=== PATIENT | male | born 1970 | race Caucasian/White ===

== ENCOUNTER 2019-08-26 12:03 | Emergency (ER) | payer MEDICAID, OTHER ==
[~2019-08-26] VITALS: Ht 177.8 cm; Wt 90.0 kg
[~2019-08-26 12:03] MED LIST: GABA-530 PO; MELO-102 PO
[2019-08-26 12:06] VITALS: BP 146/66
== END 2019-08-26 13:15 | disposition home or self-care (01) ==
LOC: ER 12:03
DX: K40.90 Unilateral inguinal hernia, without obstruction or gangrene, not specified as recurrent (principal); F15.90 Other stimulant use, unspecified, uncomplicated; Z98.890 Other specified postprocedural states; Z79.899 Other long term (current) drug therapy
CPT/HCPCS: 99282

== ENCOUNTER 2021-05-12 03:38 | Inpatient (IN) | payer MEDICAID, OTHER ==
[2021-05-12] VITALS (15 sets, daily range): BP systolic 131–148; BP diastolic 67–114
[~2021-05-12] VITALS: Ht 179.1 cm; Wt 75.0 kg
[2021-05-12] MEDS ORDERED: piperacillin/tazo 4.5gm/100ml 100 ML IV ONE (04:08)
[2021-05-12] MEDS ORDERED: acetaminophen 325mg tablet PO ONE (04:10)
[2021-05-12 04:31] LABS: BASOPHILS % (AUTO) 0.5 % (0-1); EOSINOPHILS # (AUTO) 0.1 X10'3 (0-0.9); EOSINOPHILS % (AUTO) 1.6 % (0-6); HEMATOCRIT 35.4 % (42.0-52.0); HEMOGLOBIN 11.9 g/dl (14.0-17.9); LYMPHOCYTES # (AUTO) 0.7 X10'3 (1.1-4.8); LYMPHOCYTES % (AUTO) 10.8 % (21-51); MEAN CORPUSCULAR HEMOGLOBIN 30.4 PG (27.0-31.0); MEAN CORPUSCULAR HGB CONC 33.5 g/dL (33.0-36.5); MEAN CORPUSCULAR VOLUME 90.6 FL (78-98); MEAN PLATELET VOLUME 7.3 FL (7.4-10.4); MONOCYTES # (AUTO) 0.5 X10'3 (0-0.9); MONOCYTES % (AUTO) 7.8 % (2-12); NEUTROPHILS # (AUTO) 5.1 X10'3 (1.8-7.7); NEUTROPHILS % (AUTO) 79.3 % (42-75); PLATELET COUNT 333 X10'3 (140-440); RED BLOOD COUNT 3.91 X10'6 (4.70-6.10); RED CELL DISTRIBUTION WIDTH 13.8 % (11.5-14.5); WHITE BLOOD COUNT 6.4 X10'3 (4.5-11.0)
[2021-05-12 04:46] LABS: ALANINE AMINOTRANSFERASE 24 U/L (12-78); ALBUMIN 2.6 G/DL (3.4-5.0); ALBUMIN/GLOBULIN RATIO 0.7 (1.1-1.5); ALKALINE PHOSPHATASE 69 IU/L (46-116); ANION GAP 7 (8-16); ASPARTATE AMINO TRANSFERASE 14 U/L (10-37); BILIRUBIN,TOTAL 0.3 MG/DL (0.1-1.0); BLOOD UREA NITROGEN 12 MG/DL (7-18); CALCIUM 8.4 MG/DL (8.5-10.1); CHLORIDE 99 MMOL/L (99-107); CREATININE 0.75 MG/DL (0.60-1.10); GLUCOSE 257 MG/DL (70-104); POTASSIUM 3.5 MMOL/L (3.5-5.1); SODIUM 132 MMOL/L (135-145); TOTAL CARBON DIOXIDE 26.4 MMOL/L (24-32); TOTAL PROTEIN 6.6 G/DL (6.4-8.2); eGFR > 90 ML/MIN
[2021-05-12] MEDS ORDERED: iohexol 300mg/ml 100ml inj. ONE (05:42)
[2021-05-12] MEDS ORDERED: morphine 2 MG/ML inj. syringe IV PRN ×3 (07:30→13:55)
[2021-05-12] MEDS ORDERED: magnesium hydroxide 30ml (MOM) UD suspension PO PRN (07:30)
[2021-05-12] MEDS ORDERED: acetaminophen 325mg tablet PO PRN (07:30)
[2021-05-12] MEDS ORDERED: ondansetron/PF 4mg/2ml inj IV PRN ×2 (07:30→13:55)
[2021-05-12] MEDS ORDERED: potassium Cl 20 mEq SR tablet PO PRN ×2 (07:30)
[2021-05-12] MEDS ORDERED: potassium CL 10mEq/100ml bag 100 ML IV PRN (07:30)
[2021-05-12] MEDS ORDERED: mag hydrox/Alum hydrox/simeth 30ml oral suspension PO PRN (07:30)
[2021-05-12] MEDS ORDERED: magnesium 4gm in 100ml NS 100 ML IV PRN (07:30)
[2021-05-12] MEDS ORDERED: magnesium 2GM in 50ml NS 50 ML IV PRN (07:30)
[2021-05-12] MEDS ORDERED: HYDROcodone/acetaminophen 5mg/325mg tablet PO PRN (07:30)
[2021-05-12 07:56] LABS: MAGNESIUM 1.8 MG/DL (1.5-2.4)
[2021-05-12] MEDS: piperacillin/tazo 4.5gm/100ml 100 ML IV SCH ×2 (08:00→17:41)
--- NOTE | 2021-05-12 10:45 | NUR ---
pt made aware of plan of care for surgery. pt verbalized understanding
[2021-05-12] MEDS: vancomycin/NS 1 GM ADD-VANTAGE 250 ML X 1 DOSE IV SCH ×2 (12:00→21:11)
[2021-05-12] MEDS: docusate sod 100mg capsule PO SCH ×2 (12:21→21:12)
[2021-05-12] MEDS: K and/or MAG REPLACEMENT MC SCH ×2 (12:22→20:00)
[2021-05-12] MEDS ORDERED: vancomycin 1,000mg inj ONE (13:17)
[2021-05-12] MEDS ORDERED: BUPIVAcaine/PF 2.5 mg/ml (0.25%) 30ml vial ONE (13:17)
[2021-05-12] MEDS ORDERED: proCHLORperazine 10 MG/2 ml inj IV PRN (13:55)
[2021-05-12] MEDS ORDERED: meperidine/PF 25mg/ml syringe IV PRN ×2 (13:55)
[2021-05-12] MEDS: ringers solution, lacted 1,000 ML IV SCH ×2 (13:55→22:20)
[2021-05-12] MEDS ORDERED: fentaNYL/PF 50MCG/1 ML 2ML syringe ONE (13:58)
[2021-05-12] MEDS ORDERED: midazolam 1 mg/ML 2ml injection ONE (13:59)
[2021-05-12] MEDS ORDERED: propofol inj 20 ML IV ONE (14:00)
[2021-05-12] MEDS ORDERED: LIDOcaine 2% (20mg/ml) 5ml vial ONE (14:00)
[2021-05-12] MEDS ORDERED: sevoflurane 250ml liquid IH ONE (14:40)
--- NOTE | 2021-05-12 15:45 | NUR ---
PATIENT WAKING UP , C/O PAIN SEE EMAR, V/S WNL, CSM INTACT, DRESSING TO RIGHT ELBOW CDI AND ELEVATED. LEFT HAND IS SWOLLEN MD AWARE.
[2021-05-12] MEDS ORDERED: NO HOME MEDS (15:46)
[2021-05-12] MEDS ORDERED: ketorolac trometh. 30mg/ml inj. IV ONE (15:50)
[2021-05-12] MEDS: meperidine/PF 25mg/ml syringe IV PRN ×2 (15:56→16:11)
[2021-05-12] MEDS: morphine 4 MG/ML inj SYRINge IV PRN ×2 (16:02→16:15)
--- NOTE | 2021-05-12 16:25 | NUR ---
PATIENT A&OX4, STATES PAIN INTERMITENT, V/S WNL, CSM INTACT, DRESSING TO RIGHT ELBOW CDI AND ELEVATED. LEFT HAND IS SWOLLEN MD AWARE. PATIENT TAKEN TO 244B WITH ALL BELONGINGS HOOKED UP TO MONITORS IN ROOM, BED DOWN CALL LIGHT IN REACH REPORT GIVEN TO RN WHO HAS TAKERN OVER PATIENT CARE.
--- NOTE | 2021-05-12 18:08 | NUR ---
Started on IV antibiotics, morphine for pain. Report given to Mercedez Lozano
[2021-05-12] MEDS: enoxaparin 40mg/0.4ml syringe SQ SCH (21:12)
[2021-05-12] MEDS: lactobacillus rhamnosus 10,000 MMU CELLS/CAPSULE PO SCH (21:12)
[2021-05-12] MEDS: HYDROcodone/acetaminophen 10/325mg tab PO PRN (22:30)
[2021-05-13] MEDS ORDERED: VANCOMYCIN LEVEL IV ONE ×2 (03:30→19:30)
[2021-05-13] MEDS: vancomycin/NS 1 GM ADD-VANTAGE 250 ML X 1 DOSE IV SCH ×3 (04:16→20:23)
[2021-05-13 04:41] LABS: BASOPHILS % (AUTO) 0.8 % (0-1); EOSINOPHILS # (AUTO) 0.1 X10'3 (0-0.9); EOSINOPHILS % (AUTO) 1.5 % (0-6); HEMATOCRIT 36.6 % (42.0-52.0); HEMOGLOBIN 12.5 g/dl (14.0-17.9); LYMPHOCYTES # (AUTO) 0.8 X10'3 (1.1-4.8); LYMPHOCYTES % (AUTO) 12.7 % (21-51); MEAN CORPUSCULAR HEMOGLOBIN 30.9 PG (27.0-31.0); MEAN CORPUSCULAR HGB CONC 34.1 g/dL (33.0-36.5); MEAN CORPUSCULAR VOLUME 90.7 FL (78-98); MEAN PLATELET VOLUME 8.2 FL (7.4-10.4); MONOCYTES # (AUTO) 0.7 X10'3 (0-0.9); MONOCYTES % (AUTO) 11.5 % (2-12); NEUTROPHILS # (AUTO) 4.6 X10'3 (1.8-7.7); NEUTROPHILS % (AUTO) 73.5 % (42-75); PLATELET COUNT 307 X10'3 (140-440); RED BLOOD COUNT 4.04 X10'6 (4.70-6.10); RED CELL DISTRIBUTION WIDTH 14.3 % (11.5-14.5); WHITE BLOOD COUNT 6.2 X10'3 (4.5-11.0)
[2021-05-13 04:53] LABS: ALANINE AMINOTRANSFERASE 23 U/L (12-78); ALBUMIN 2.6 G/DL (3.4-5.0); ALBUMIN/GLOBULIN RATIO 0.6 (1.1-1.5); ALKALINE PHOSPHATASE 75 IU/L (46-116); ANION GAP 7 (8-16); ASPARTATE AMINO TRANSFERASE 19 U/L (10-37); BILIRUBIN,TOTAL 0.7 MG/DL (0.1-1.0); BLOOD UREA NITROGEN 12 MG/DL (7-18); BUN/CREATININE RATIO 17.4 (5.4-32.0); CALCIUM 8.9 MG/DL (8.5-10.1); CHLORIDE 103 MMOL/L (99-107); CREATININE 0.69 MG/DL (0.60-1.10); GLUCOSE 110 MG/DL (70-104); MAGNESIUM 1.9 MG/DL (1.5-2.4); POTASSIUM 4.3 MMOL/L (3.5-5.1); SODIUM 136 MMOL/L (135-145); TOTAL CARBON DIOXIDE 26.5 MMOL/L (24-32); TOTAL PROTEIN 6.8 G/DL (6.4-8.2); eGFR > 90 ML/MIN
[2021-05-13] MEDS: HYDROcodone/acetaminophen 10/325mg tab PO PRN ×4 (05:56→23:02)
--- NOTE | 2021-05-13 06:09 | NUR ---
Stable throughout the shift. Medicated twice for pain. Vancomycin infused, labs drawn, voiding in the urinal
--- NOTE | 2021-05-13 06:39 | NUR ---
Change of shift report given to Joann RN Addendum: 05/13/21 at 0639 by Mercedez Meza RN Amended: Links added.
[2021-05-13] MEDS: K and/or MAG REPLACEMENT MC SCH ×2 (08:00→20:42)
[2021-05-13] MEDS: lactobacillus rhamnosus 10,000 MMU CELLS/CAPSULE PO SCH ×2 (09:54→20:23)
[2021-05-13] MEDS: docusate sod 100mg capsule PO SCH ×2 (09:54→20:23)
[2021-05-13] MEDS: piperacillin/tazo 4.5gm/100ml 100 ML IV SCH ×3 (09:57→16:22)
[2021-05-13] MEDS: enoxaparin 40mg/0.4ml syringe SQ SCH (20:25)
[2021-05-14] MEDS: piperacillin/tazo 4.5gm/100ml 100 ML IV SCH ×3 (00:07→19:32)
[2021-05-14] MEDS: vancomycin/NS 1 GM ADD-VANTAGE 250 ML X 1 DOSE IV SCH (04:09)
--- NOTE | 2021-05-14 05:00 | NUR ---
Stable throughout the shift. Medicated for pain. Drinking large amounts fluids and voiding adequately
[2021-05-14] MEDS: HYDROcodone/acetaminophen 10/325mg tab PO PRN ×3 (05:56→19:29)
[2021-05-14 06:05] LABS: BASOPHILS % (AUTO) 0.7 % (0-1); EOSINOPHILS # (AUTO) 0.1 X10'3 (0-0.9); EOSINOPHILS % (AUTO) 1.4 % (0-6); HEMATOCRIT 38.2 % (42.0-52.0); HEMOGLOBIN 13.1 g/dl (14.0-17.9); LYMPHOCYTES # (AUTO) 1.1 X10'3 (1.1-4.8); LYMPHOCYTES % (AUTO) 16.7 % (21-51); MEAN CORPUSCULAR HGB CONC 34.3 g/dL (33.0-36.5); MEAN CORPUSCULAR VOLUME 90.3 FL (78-98); MEAN PLATELET VOLUME 7.3 FL (7.4-10.4); MONOCYTES # (AUTO) 0.8 X10'3 (0-0.9); MONOCYTES % (AUTO) 12.3 % (2-12); NEUTROPHILS # (AUTO) 4.5 X10'3 (1.8-7.7); NEUTROPHILS % (AUTO) 68.9 % (42-75); PLATELET COUNT 402 X10'3 (140-440); RED BLOOD COUNT 4.23 X10'6 (4.70-6.10); RED CELL DISTRIBUTION WIDTH 13.8 % (11.5-14.5); WHITE BLOOD COUNT 6.6 X10'3 (4.5-11.0)
[2021-05-14 06:25] LABS: ALANINE AMINOTRANSFERASE 30 U/L (12-78); ALBUMIN 2.5 G/DL (3.4-5.0); ALBUMIN/GLOBULIN RATIO 0.5 (1.1-1.5); ALKALINE PHOSPHATASE 79 IU/L (46-116); ANION GAP 7 (8-16); ASPARTATE AMINO TRANSFERASE 23 U/L (10-37); BILIRUBIN,TOTAL 0.4 MG/DL (0.1-1.0); BLOOD UREA NITROGEN 14 MG/DL (7-18); BUN/CREATININE RATIO 18.7 (5.4-32.0); CALCIUM 9.1 MG/DL (8.5-10.1); CHLORIDE 104 MMOL/L (99-107); CREATININE 0.75 MG/DL (0.60-1.10); GLUCOSE 107 MG/DL (70-104); MAGNESIUM 2.1 MG/DL (1.5-2.4); POTASSIUM 4.3 MMOL/L (3.5-5.1); SODIUM 139 MMOL/L (135-145); TOTAL CARBON DIOXIDE 28.3 MMOL/L (24-32); TOTAL PROTEIN 7.3 G/DL (6.4-8.2); eGFR > 90 ML/MIN
--- NOTE | 2021-05-14 06:46 | NUR ---
Change of shift report given to Lucrecia MIRANDA Addendum: 05/14/21 at 0646 by Mercedez Meza RN Amended: Links added. Addendum: 05/14/21 at 0707 by Mercedez Meza RN Change of shift report was given to Joann MIRANDA
[2021-05-14] MEDS: K and/or MAG REPLACEMENT MC SCH ×2 (07:22→19:46)
[2021-05-14] MEDS: docusate sod 100mg capsule PO SCH ×2 (08:00→19:29)
[2021-05-14] MEDS: lactobacillus rhamnosus 10,000 MMU CELLS/CAPSULE PO SCH ×2 (08:00→19:29)
[2021-05-14] MEDS: VANCOmycin 1250MG/NS 250ml Bag 250 ML IV SCH ×2 (13:05→22:00)
[2021-05-14 19:00] VITALS: BP 118/62
[2021-05-14] MEDS: enoxaparin 40mg/0.4ml syringe SQ SCH (19:29)
[2021-05-15] VITALS: BP 112/62
[2021-05-15] MEDS: piperacillin/tazo 4.5gm/100ml 100 ML IV SCH ×2 (00:18→07:07)
[2021-05-15] MEDS: HYDROcodone/acetaminophen 10/325mg tab PO PRN ×3 (01:48→11:09)
[2021-05-15] MEDS: VANCOmycin 1250MG/NS 250ml Bag 250 ML IV SCH (04:16)
--- NOTE | 2021-05-15 06:58 | NUR ---
Change of shift report given to Lucrecia MIRANDA Addendum: 05/15/21 at 0658 by Mercedez Meza RN Amended: Links added. Addendum: 05/15/21 at 0705 by Mercedez Meza RN Change of shift report was given to Sarai MIRANDA (not Darcy)
[2021-05-15] MEDS: docusate sod 100mg capsule PO SCH (07:06)
[2021-05-15] MEDS: lactobacillus rhamnosus 10,000 MMU CELLS/CAPSULE PO SCH (07:06)
[2021-05-15] MEDS: K and/or MAG REPLACEMENT MC SCH (07:10)
[2021-05-15 08:00] VITALS: BP 129/79
[2021-05-15 08:16] LABS: ALANINE AMINOTRANSFERASE 36 U/L (12-78); ALBUMIN 2.4 G/DL (3.4-5.0); ALBUMIN/GLOBULIN RATIO 0.5 (1.1-1.5); ALKALINE PHOSPHATASE 75 IU/L (46-116); ANION GAP 9 (8-16); ASPARTATE AMINO TRANSFERASE 20 U/L (10-37); BILIRUBIN,TOTAL 0.2 MG/DL (0.1-1.0); BLOOD UREA NITROGEN 17 MG/DL (7-18); BUN/CREATININE RATIO 21.5 (5.4-32.0); CHLORIDE 105 MMOL/L (99-107); CREATININE 0.79 MG/DL (0.60-1.10); GLUCOSE 104 MG/DL (70-104); MAGNESIUM 2.3 MG/DL (1.5-2.4); POTASSIUM 4.5 MMOL/L (3.5-5.1); SODIUM 140 MMOL/L (135-145); TOTAL CARBON DIOXIDE 26.4 MMOL/L (24-32); TOTAL PROTEIN 7.2 G/DL (6.4-8.2); eGFR > 90 ML/MIN
[2021-05-15] MEDS ORDERED: AMOX-580 PO (09:56)
--- NOTE | 2021-05-15 11:20 | NUR ---
Patient dc'd home with friend driving. Pt was given norco prior to discharge for pain but tolerated it well. Packing dc'd per DR Sibley orders with orders not to repack but with instructions for daily dry dressing orders and follow up with in 1-2 weeks. Pt also given phone number for outpt [facility] and instructed to call both for appointment. IV taken out, new dressing applied. Pt forgot dressing supplies in room but knows he can go to pharmacy for simple dressing supplies while waiting for wound care. Pt states understanding. Abx at [facility] on [address].
[2021-05-15] MEDS ORDERED: VANCOMYCIN LEVEL IV ONE (11:30)
== END 2021-05-15 11:29 | disposition home or self-care (01) | DRG 315 ==
LOC: ER 03:39 → ED HOLD 07:34 → SUR 3N 16:23
PROVIDERS: ADMIT Family Medicine; ATTEND Family Medicine
PROC: 0JBG0ZZ Excision of Right Lower Arm Subcutaneous Tissue and Fascia, Open Approach (ICD-10-PCS; 2021-05-12)
PROC: BP2T1ZZ Computerized Tomography (CT Scan) of Right Upper Extremity using Low Osmolar Contrast (ICD-10-PCS; 2021-05-12)
PROC: 0R9L0ZZ Drainage of Right Elbow Joint, Open Approach (ICD-10-PCS; principal; 2021-05-12 14:40)
DX: M00.9 Pyogenic arthritis, unspecified (principal); E87.1 Hypo-osmolality and hyponatremia; Z20.822 Contact with and (suspected) exposure to COVID-19; F15.10 Other stimulant abuse, uncomplicated; F17.210 Nicotine dependence, cigarettes, uncomplicated; L02.413 Cutaneous abscess of right upper limb; L03.113 Cellulitis of right upper limb; Z71.6 Tobacco abuse counseling
CPT/HCPCS: 36415; 73201; 80053; 80202; 83605; 83735; 84145; 85025; 87040; 87070; 87075; 87635; 96374; 99285; A4618; A6222; A6253; A6446; A6449; A7000; G0378; J1650; J1885; J2175; J2250; J2270; J2543; J2704; J3010; J3370; J3490; J7120; Q9967

== ENCOUNTER 2021-12-13 17:29 | Emergency (ER) | payer MEDICAID ==
[~2021-12-13] VITALS: Ht 177.8 cm; Wt 68.2 kg
[~2021-12-13 17:29] MED LIST changes: +AMOX-580 PO; -GABA-530 PO; -MELO-102 PO
[2021-12-13 17:36] VITALS: BP 128/92
[2021-12-13] MEDS ORDERED: SULF1TAB45 PO (18:23)
[2021-12-13] MEDS ORDERED: CEPH250T PO (18:23)
[2021-12-13] MEDS ORDERED: LIDOcaine 1% W/epiNEPHrine 1:100,000 20ml vial IJ ONE (18:25)
[2021-12-13] MEDS ORDERED: cephalexin 500mg capsule PO ONE (18:25)
[2021-12-13] MEDS ORDERED: sulfamethoxazole/trimethoprim DS (800/160mg) tablet PO ONE (18:25)
== END 2021-12-13 19:00 | disposition home or self-care (01) ==
LOC: ER 17:29
DX: L02.511 Cutaneous abscess of right hand (principal); F15.20 Other stimulant dependence, uncomplicated
CPT/HCPCS: 26010; 99283; A6449

== ENCOUNTER 2024-03-14 08:45 | Outpatient (CLI) | payer MEDICAID | END 2024-03-14 23:59 | disposition home or self-care (01) | LOC: MRI 08:45 | PROVIDERS: ATTEND Podiatrist Foot & Ankle Surgery | DX: M19.071 Primary osteoarthritis, right ankle and foot (principal); M25.871 Other specified joint disorders, right ankle and foot; M25.774 Osteophyte, right foot; Q66.71 Congenital pes cavus, right foot; M25.371 Other instability, right ankle; M79.671 Pain in right foot | CPT/HCPCS: 73700; 73721 ==

== ENCOUNTER 2024-06-24 08:06 | Day surgery (SDC) | payer MEDICAID ==
[2024-06-18 13:45] LABS: BASOPHILS % (AUTO) 0.5 % (0-1); EOSINOPHILS # (AUTO) 0.2 X10'3 (0-0.9); EOSINOPHILS % (AUTO) 2.4 % (0-6); LYMPHOCYTES # (AUTO) 1.5 X10'3 (1.1-4.8); LYMPHOCYTES % (AUTO) 16.7 % (21-51); MEAN CORPUSCULAR HEMOGLOBIN 28.6 PG (27.0-31.0); MEAN CORPUSCULAR VOLUME 86.6 FL (78-98); MEAN PLATELET VOLUME 7.6 FL (7.4-10.4); MONOCYTES # (AUTO) 0.7 X10'3 (0-0.9); MONOCYTES % (AUTO) 7.4 % (2-12); NEUTROPHILS # (AUTO) 6.8 X10'3 (1.8-7.7); PRE OP HEMATOCRIT 50.1 % (42.0-52.0); PRE OP HEMOGLOBIN 16.6 g/dL (14.0-17.9); PRE OP PLATELET COUNT 365 X10'3 (140-440); PRE OP WHITE BLOOD COUNT 9.3 10'3 (4.8-10.8); RED BLOOD COUNT 5.79 X10'6 (4.70-6.10); RED CELL DISTRIBUTION WIDTH 16.7 % (11.5-14.5)
[2024-06-18 14:04] LABS: ALBUMIN 3.7 G/DL (3.4-5.0); ALBUMIN/GLOBULIN RATIO 0.9 (1.1-1.5); ALKALINE PHOSPHATASE 80 IU/L (46-116); BLOOD UREA NITROGEN 14 MG/DL (7-18); BUN/CREATININE RATIO 16.9 (10.0-20.0); CALCIUM 8.8 MG/DL (8.5-10.1); CHLORIDE 105 MMOL/L (99-107); CREATININE 0.83 MG/DL (0.60-1.10); PRE OP ALT 42 U/L (30-65); PRE OP ANION GAP 4 (8-16); PRE OP BILIRUB, TOTAL 0.5 MG/DL (0.0-1.0); PRE OP GLUCOSE 121 MG/DL (70-104); PRE OP SODIUM 136 MMOL/L (135-145); TOTAL CARBON DIOXIDE 26.7 MMOL/L (24-32); TOTAL PROTEIN 7.8 G/DL (6.4-8.2); eGFR > 90 ML/MIN
[2024-06-18 14:05] LABS: PRE OP AST 31 U/L (10-37); PRE OP POTASSIUM 4.6 MMOL/L (3.4-5.1)
[2024-06-24] VITALS (10 sets, daily range): BP systolic 131–169; BP diastolic 67–100; PULSE 66–102; RESP 8–19; TEMP 98.2; O2SAT 91–99
[~2024-06-24] VITALS: Ht 177.8 cm; Wt 96.3 kg
[2024-06-24] MEDS: ceFAZolin 2gm in dextrose, iso 50 ML IV ONE (05:30)
[~2024-06-24 08:06] MED LIST changes: -AMOX-580 PO; +ATOR40TA72 PO; +BUPIVAcaine 2.5mg/ml inj 50ml vial (contains preservative) ONE; +CHOL500050 PO; +LIDOcaine 1% 30ml preserv. free vial ONE; +LISI2.5T14 PO; +METF-900 PO; +NICO-907 PO; +VARE1TAB24 PO
[2024-06-24] MEDS: famotidine 20mg tablet PO ONE (09:24)
[2024-06-24] MEDS: ringers solution, lacted 1,000 ML IV SCH (09:24)
[2024-06-24] MEDS ORDERED: sevoflurane 250ml liquid IH ONE (10:41)
[2024-06-24] MEDS ORDERED: fentaNYL/PF 50MCG/1 ML 2ML syringe ONE (10:44)
[2024-06-24] MEDS ORDERED: propofol inj 20 ML IV ONE (10:44)
[2024-06-24] MEDS ORDERED: midazolam 1 mg/ML 2ml injection ONE (10:44)
[2024-06-24] MEDS ORDERED: dexamethasone sod phosphate 4mg/ml inj. ONE (10:57)
[2024-06-24] MEDS ORDERED: rocuronium 10mg/ml inj IV ONE (10:57)
[2024-06-24] MEDS ORDERED: morphine 2 MG/ML inj. syringe IV PRN (11:40)
[2024-06-24] MEDS ORDERED: meperidine/PF 25mg/ml syringe IV PRN ×3 (11:40)
[2024-06-24] MEDS ORDERED: proCHLORperazine 10 MG/2 ml inj IV PRN (11:40)
[2024-06-24] MEDS ORDERED: ringers solution, lacted 1,000 ML IV SCH (11:40)
[2024-06-24] MEDS ORDERED: labetalol 20mg/4ml (5mg/ml) syringe IV PRN (11:40)
[2024-06-24] MEDS ORDERED: ondansetron/PF 4mg/2ml inj IV PRN (11:40)
[2024-06-24] MEDS ORDERED: morphine 4 MG/ML inj SYRINge IV PRN (11:40)
[2024-06-24] MEDS ORDERED: ondansetron/PF 4mg/2ml inj ONE (11:48)
[2024-06-24] MEDS ORDERED: neostigmine methylsulfate 1 MG/ML 10ml vial ONE (12:13)
[2024-06-24] MEDS ORDERED: glycopyrrolate 0.2mg/ml inj ONE (12:13)
[2024-06-24] MEDS ORDERED: HYDROcodone/acetaminophen 5mg/325mg tablet PO PRN (12:45)
== END 2024-06-24 13:54 | disposition home or self-care (01) ==
LOC: PAS 08:06
PROVIDERS: ATTEND Surgery
DX: K42.9 Umbilical hernia without obstruction or gangrene (principal); K40.91 Unilateral inguinal hernia, without obstruction or gangrene, recurrent; D17.6 Benign lipomatous neoplasm of spermatic cord; I10 Essential (primary) hypertension; E78.5 Hyperlipidemia, unspecified; E11.9 Type 2 diabetes mellitus without complications; Z98.890 Other specified postprocedural states; Z79.899 Other long term (current) drug therapy; Z83.3 Family history of diabetes mellitus; Z82.49 Family history of ischemic heart disease and other diseases of the circulatory system; Z82.61 Family history of arthritis
CPT/HCPCS: 36415; 49591; 49651; 80053; 82948; 85025; C1781; J0690; J1100; J2003; J2250; J2405; J2704; J2710; J3010; J3490; J7030; J7120; S2900; Z7506; Z7508; Z7512; A4215; A4615; A4618